=== PATIENT | male | born 1945 | race Caucasian/White ===

== ENCOUNTER → 2017-07-02 | Outpatient (CLI) | payer MEDICARE, OTHER | END | disposition home or self-care (01) | LOC: LAB SHORT 08:12 → PLD 08:12 | DX: D22.72 Melanocytic nevi of left lower limb, including hip (principal) | CPT/HCPCS: 88305 ==

== ENCOUNTER → 2018-06-16 | Outpatient (CLI) | payer MEDICARE, OTHER | END | disposition home or self-care (01) | LOC: LAB 10:41 → LAB SHORT 10:41 | DX: A49.9 Bacterial infection, unspecified (principal) | CPT/HCPCS: 87070; 87205 ==

== ENCOUNTER 2021-02-13 08:34 | Day surgery (SDC) | payer MEDICARE, OTHER ==
[~2021-02-13] VITALS: Ht 172.7 cm; Wt 75.2 kg
[2021-02-13] MEDS ORDERED: BETA.05TCA (08:54)
[2021-02-13] MEDS ORDERED: Amlodipine Bes2.5 MG (08:54)
[2021-02-13] MEDS ORDERED: ECONAZOLE NITRA30 GM (08:54)
[2021-02-13] MEDS ORDERED: Lovastatin20 MG (08:55)
[2021-02-13] MEDS ORDERED: POTA8 (08:55)
[2021-02-13] MEDS ORDERED: METTREX2.5 (08:55)
[2021-02-13] MEDS ORDERED: FOLI1 (08:55)
[2021-02-13] MEDS ORDERED: PRED1 (08:56)
[2021-02-13] MEDS ORDERED: RESTORIL (08:57)
[2021-02-13] MEDS ORDERED: FISH OIL 1,2001 EAC7 (08:57)
[2021-02-13] MEDS ORDERED: GLUC500 (08:58)
== END 2021-02-13 11:28 | disposition home or self-care (01) ==
LOC: ORSCSDS 08:34
PROVIDERS: Internal Medicine Gastroenterology
PROC: 0DBM8ZX Excision of Descending Colon, Via Natural or Artificial Opening Endoscopic, Diagnostic (ICD-10-PCS; principal; 2021-02-13 10:00)
DX: Z12.11 Encounter for screening for malignant neoplasm of colon (principal); D12.4 Benign neoplasm of descending colon; K57.30 Diverticulosis of large intestine without perforation or abscess without bleeding; K64.8 Other hemorrhoids; I10 Essential (primary) hypertension; Z79.899 Other long term (current) drug therapy
CPT/HCPCS: 88305; J2704; J7120

== ENCOUNTER → 2021-05-04 | Outpatient (CLI) | payer MEDICARE, OTHER ==
[~2021-05-04] MED LIST: Amlodipine Bes2.5 MG; BETA.05TCA; ECONAZOLE NITRA30 GM; FISH OIL 1,2001 EAC7; FOLI1; GLUC500; Lovastatin20 MG; METTREX2.5; POTA8; PRED1; RESTORIL
== END | disposition home or self-care (01) ==
LOC: LAB SHORT 08:02
DX: L85.8 Other specified epidermal thickening (principal); R60.0 Localized edema
CPT/HCPCS: 88305

== ENCOUNTER → 2021-05-25 | Outpatient (CLI) | payer MEDICARE, OTHER | END | disposition home or self-care (01) | LOC: LAB SHORT 12:28 | DX: L57.8 Other skin changes due to chronic exposure to nonionizing radiation (principal) | CPT/HCPCS: 88305 ==

== ENCOUNTER → 2021-07-27 | Outpatient (CLI) | payer MEDICARE, OTHER | END | disposition home or self-care (01) | LOC: LAB SHORT 12:12 → PLD 12:12 | DX: R23.4 Changes in skin texture (principal) | CPT/HCPCS: 88305; 88312 ==

== ENCOUNTER → 2022-10-09 | Outpatient (CLI) | payer MEDICARE, OTHER | LOC: PLD 08:01 → LAB 08:01 → LAB SHORT 08:01 | DX: L82.1 Other seborrheic keratosis (principal) | CPT/HCPCS: 88305 ==

== ENCOUNTER 2023-01-22 07:16 | Day surgery (SDC) | payer MEDICARE, OTHER ==
[~2023-01-22] VITALS: Ht 172.7 cm; Wt 76.7 kg
[2023-01-22] MEDS ORDERED: SILD25T (07:57)
[2023-01-22] MEDS ORDERED: SYSTANE ULTRA P10 ML (07:58)
[2023-01-22] MEDS ORDERED: OCUVITE BLUE L1 EACH (07:58)
[2023-01-22] MEDS ORDERED: MULVITA (07:59)
--- NOTE | 2023-01-22 08:16 | NUR ---
01/22/23 0816 Abimbola Freedman TETRACAINE PLACED IN RIGHT EYE AT 0755. PLEDGET PLACED IN RIGHT EYE AT 0756 PATIENT TOLERATED WELL
[2023-01-22 08:56] VITALS: BP 128/71
--- NOTE | 2023-01-22 08:59 | NUR ---
01/22/23 0859 KEELY GOMEZ IV REMOVED. KASANDRA WELL. CANNULA INTACT
== END 2023-01-22 08:15 | disposition home or self-care (01) ==
LOC: ORSCSDS 07:16
PROVIDERS: Student in an Organized Health Care Education/Training Program
PROC: 08RJ3JZ Replacement of Right Lens with Synthetic Substitute, Percutaneous Approach (ICD-10-PCS; principal; 2023-01-22 08:30)
DX: H25.11 Age-related nuclear cataract, right eye (principal); I10 Essential (primary) hypertension; I12.9 Hypertensive chronic kidney disease with stage 1 through stage 4 chronic kidney disease, or unspecified chronic kidney disease; N18.9 Chronic kidney disease, unspecified; Z79.899 Other long term (current) drug therapy
CPT/HCPCS: J2250; J7040; V2632

== ENCOUNTER 2023-02-05 10:19 | Day surgery (SDC) | payer MEDICARE, OTHER ==
[~2023-02-05] VITALS: Ht 172.7 cm; Wt 76.5 kg
[~2023-02-05 10:19] MED LIST changes: +MULVITA; +OCUVITE BLUE L1 EACH; +SILD25T; +SYSTANE ULTRA P10 ML
[2023-02-05] MEDS ORDERED: PRED5 PO (11:11)
[2023-02-05 12:17] VITALS: BP 137/75
== END 2023-02-05 12:35 | disposition home or self-care (01) ==
LOC: ORSCSDS 10:19
PROVIDERS: Student in an Organized Health Care Education/Training Program
PROC: 08RK3JZ Replacement of Left Lens with Synthetic Substitute, Percutaneous Approach (ICD-10-PCS; principal; 2023-02-05 11:30)
DX: H25.12 Age-related nuclear cataract, left eye (principal); Z96.1 Presence of intraocular lens; I12.9 Hypertensive chronic kidney disease with stage 1 through stage 4 chronic kidney disease, or unspecified chronic kidney disease; G47.33 Obstructive sleep apnea (adult) (pediatric); N18.9 Chronic kidney disease, unspecified; Z79.899 Other long term (current) drug therapy
CPT/HCPCS: J2250; J3010; J7040; V2632